=== PATIENT | female | born 1970 ===

== ENCOUNTER 2021-05-18 14:28 | Outpatient (CLI) | payer OTHER ==
[2021-05-18 15:55] LABS: Hemoglobin 11.3 g/dL (12.0-15.5); Mean Corpuscular HGB CONC 32.6 g/dL (32.0-36.0); Mean Corpuscular Hemoglobin 31.2 pg (27.0-33.0); Mean Corpuscular Volume 95.9 fl (81.6-98.3); Mean Platelet Volume 12.7 fl (7.4-10.4); Platelet Count 238 10x3/uL (150-450); RBC Distribution Width 13.8 % (11.5-14.5); Red Blood Cell (RBC) Count 3.62 10x6/uL (3.90-5.03)
[2021-05-18 16:15] LABS: Anion Gap 13 mmol/L (10-20); BUN (Urea Nitrogen) 16 mg/dL (7.0-18.7); Calc. Creatinine Clearance 0 mL/min (70-130); Calcium 8.7 mg/dL (7.8-10.44); Carbon Dioxide 24 mmol/L (22-29); Chloride 105 mmol/L (98-107); Glucose 98 mg/dL (70-105); Potassium 4.1 mmol/L (3.5-5.1); Sodium 138 mmol/L (136-145)
[2021-05-19 00:47] LABS: SARS-CoV-2 PCR by NAA Not Detected (NotDetected)
== END 2021-05-18 14:29 | disposition home or self-care (01) ==
LOC: CSHLAB 14:28
PROVIDERS: ATTEND Podiatrist Foot & Ankle Surgery
DX: Z01.812 Encounter for preprocedural laboratory examination (principal); Z20.822 Contact with and (suspected) exposure to COVID-19; T85.698A Other mechanical complication of other specified internal prosthetic devices, implants and grafts, initial encounter
CPT/HCPCS: 80048; 85027; U0003; U0005

== ENCOUNTER 2021-05-21 09:58 | Day surgery (SDC) | payer OTHER ==
[2021-05-19 13:16] VITALS: BMI 19.1
[2021-05-21] MEDS ORDERED: Lidocaine 1% MPF 2 ML VIAL ONE (10:29)
[2021-05-21] MEDS ORDERED: Neomycin-Polymyxin 1 ML AMP ONE (11:56)
[2021-05-21] MEDS ORDERED: Bupivacaine PF 0.5% 30 ML VIAL ONE (11:56)
[2021-05-21] MEDS ORDERED: Midazolam HCl 2 mg/2 ml Vial ONE (12:06)
[2021-05-21] MEDS ORDERED: Fentanyl 100 MCG/2 ML VIAL ONE (12:06)
[2021-05-21] MEDS ORDERED: PROPOFOL 20 ML ONE (12:06)
[2021-05-21] MEDS ORDERED: Lidocaine 1% PF 5 ML VIAL ONE (12:07)
[2021-05-21] MEDS ORDERED: CEFAZOLIN 1 GM VIAL ONE (12:07)
== END 2021-05-21 14:15 | disposition home or self-care (01) ==
LOC: CSHSDC 09:58
PROVIDERS: ATTEND Podiatrist Foot & Ankle Surgery
DX: T84.84XA Pain due to internal orthopedic prosthetic devices, implants and grafts, initial encounter (principal)
CPT/HCPCS: 76000; J0690; J2250; J2704; J3010; S0020